=== PATIENT | male | born 1970 | race Caucasian/White ===

== ENCOUNTER 2020-02-17 14:24 | Inpatient (IN) | payer OTHER, MEDICAID ==
[~2020-02-17] VITALS: Ht 172.7 cm; Wt 86.2 kg
[2020-02-17] MEDS ORDERED: PROPOFOL 100 ML IV ONE ×2 (18:52→21:07)
[2020-02-17] MEDS ORDERED: NOREPINEPHRINE 8 MG in SODIUM CHLORIDE 0.9% 242 ML IV PRN (19:12)
[2020-02-17] MEDS ORDERED: SENNA 176 MG/5 ML ORAL SOL NG PRN (19:30)
[2020-02-17] MEDS ORDERED: GLUCAGON 1 MG IM PRN (19:30)
[2020-02-17] MEDS: PLEASE ENTER HEIGHT AND WEIGHT MC SCH (19:30)
[2020-02-17] MEDS ORDERED: DEXTROSE 4 GM TAB.CHEW PO PRN (19:30)
[2020-02-17] MEDS ORDERED: SENNA/DOCUSATE TABLET NG PRN (19:30)
[2020-02-17] MEDS ORDERED: PHARMACY MAY ADJ FOR RENAL FX MC SCH (19:30)
[2020-02-17] MEDS ORDERED: BISACODYL 10 MG SUPP PR PRN (19:30)
[2020-02-17] MEDS ORDERED: LACTULOSE 20 GM/30 ML UDC NG PRN (19:30)
[2020-02-17] MEDS ORDERED: LIDOCAINE-MPF 1%, 2ML ENDO PRN (19:30)
[2020-02-17] MEDS ORDERED: DEXTROSE 50%, 50ML SYRINGE IVPush PRN (19:30)
[2020-02-17] MEDS ORDERED: PLEASE ENTER ALLERGIES MC SCH (19:30)
[2020-02-17] MEDS ORDERED: ACETAMINOPHEN 325 MG TABLET ONE (19:57)
[2020-02-17] MEDS: ACETAMINOPHEN 650 MG/20.3 ML UDC PO/NG PRN (20:01)
[2020-02-17] MEDS: AZITHROMYCIN 500 MG in SODIUM CHLORIDE 0.9% 250 ML IV SCH (20:28)
[2020-02-17] MEDS: HYDROXYCHLOROQUINE 200 MG TABLET PO SCH (20:28)
[2020-02-17] MEDS: SODIUM CHLORIDE FLUSH 10ML SYR IVF SCH ×2 (20:29→22:28)
[2020-02-17] MEDS: PROPOFOL 100 ML IV SCH ×2 (21:08→22:29)
[2020-02-17] MEDS ORDERED: SODIUM CHLORIDE 0.9% 1,000 ML IV SCH (22:00)
[2020-02-17 22:46] VITALS: BP 129/81
[2020-02-18] MEDS: ACETAMINOPHEN 650 MG/20.3 ML UDC PO/NG PRN ×3 (00:05→21:00)
[2020-02-18] MEDS: PLEASE ENTER HEIGHT AND WEIGHT MC SCH ×2 (00:30→11:30)
[2020-02-18 01:32] LABS: CULTURE INDICATED? YES; MICROSCOPIC INDICATED
[2020-02-18] MEDS: PROPOFOL 100 ML IV SCH ×6 (03:11→23:40)
[2020-02-18 04:00] VITALS: BP 106/71
[2020-02-18 07:03] LABS: ALANINE AMINOTRANSFERASE 67 U/L (12-78); ALBUMIN 2.1 g/dL (3.4-5.0); ANION GAP 5 mmol/L (5-15); CALCIUM 7.8 mg/dL (8.5-10.1); CHLORIDE 104 mmol/L (98-107)
[2020-02-18 07:05] LABS: ALKALINE PHOSPHATASE 179 U/L (45-117); BILIRUBIN,TOTAL 0.5 mg/dL (0.2-1.0); TOTAL PROTEIN 6.3 g/dL (6.4-8.2)
[2020-02-18 07:07] LABS: BASOPHILS # (AUTO) 0.01 x10^3/uL (0-0.1); BASOPHILS % (AUTO) 0 % (0-1); EOSINOPHILS # (AUTO) 0.01 x10^3/uL (0-0.4); EOSINOPHILS % (AUTO) 0 % (1-7); LYMPHOCYTES # (AUTO) 0.55 x10^3/uL (1-3.4); LYMPHOCYTES % (AUTO) 13 % (22-44); MD NO; MEAN CORPUSCULAR HEMOGLOBIN 29.1 pg (27.5-34.5); MEAN CORPUSCULAR HGB CONC 33.9 g/dL (33.2-36.2); MEAN CORPUSCULAR VOLUME 85.8 fL (81-97); MEAN PLATELET VOLUME 7.9 fL (7.4-10.4); MONOCYTES # (AUTO) 0.08 x10^3/uL (0.2-0.8); MONOCYTES % (AUTO) 2 % (2-9); NEUTROPHILS # (AUTO) 3.45 x10^3/uL (1.8-6.8); NEUTROPHILS % (AUTO) 84 % (42-75); PLATELET COUNT 133 x10^3/uL (130-400); RED BLOOD COUNT 4.84 x10^6/uL (4.38-5.82)
[2020-02-18] MEDS: SODIUM CHLORIDE FLUSH 10ML SYR IVF SCH (07:57)
[2020-02-18] MEDS ORDERED: PANTOPRAZOLE 40 MG IV IV SCH (09:00)
[2020-02-18] MEDS: HYDROXYCHLOROQUINE 200 MG TABLET PO SCH ×3 (09:59→21:05)
--- NOTE | 2020-02-18 11:05 | NUR ---
TF GOAL: w/ propofol: VITAL HIGH PROTEIN @ 65ML/HR off propofol: VITAL HIGH PROTEIN @ 70ML/HR
[2020-02-18] MEDS ORDERED: ALBUTEROL/IPRATROPIUM 2.5MG/0.5MG, 3 ML ONE (11:46)
[2020-02-18] MEDS: FENTANYL PF 100 MCG/2ML IVPush PRN (11:58)
[2020-02-18] MEDS: ALBUTEROL/IPRATROPIUM 2.5MG/0.5MG, 3 ML INLINE SCH ×2 (15:00→21:00)
[2020-02-18] MEDS ORDERED: ALBUTEROL/IPRATROPIUM 2.5MG/0.5MG, 3 ML IPPB SCH (15:00)
[2020-02-18] MEDS: MIDAZOLAM 1 MG/ML, 2ML IVPush PRN ×3 (16:40→21:00)
[2020-02-18] MEDS: AZITHROMYCIN 500 MG in SODIUM CHLORIDE 0.9% 250 ML IV SCH (21:00)
[2020-02-19] MEDS: ALBUTEROL/IPRATROPIUM 2.5MG/0.5MG, 3 ML INLINE SCH ×4 (02:28→20:48)
[2020-02-19] MEDS: FENTANYL PF 100 MCG/2ML IVPush PRN ×6 (03:07→21:18)
[2020-02-19] MEDS: PROPOFOL 100 ML IV SCH ×5 (03:31→21:17)
[2020-02-19 03:49] VITALS: BP 102/60
[2020-02-19 05:16] LABS: BASOPHILS # (AUTO) 0.02 x10^3/uL (0-0.1); BASOPHILS % (AUTO) 0 % (0-1); EOSINOPHILS # (AUTO) 0.01 x10^3/uL (0-0.4); EOSINOPHILS % (AUTO) 0 % (1-7); LYMPHOCYTES # (AUTO) 0.42 x10^3/uL (1-3.4); LYMPHOCYTES % (AUTO) 8 % (22-44); MD NO; MEAN CORPUSCULAR HEMOGLOBIN 29.3 pg (27.5-34.5); MEAN CORPUSCULAR HGB CONC 34.4 g/dL (33.2-36.2); MEAN CORPUSCULAR VOLUME 85.2 fL (81-97); MEAN PLATELET VOLUME 7.8 fL (7.4-10.4); MONOCYTES # (AUTO) 0.08 x10^3/uL (0.2-0.8); MONOCYTES % (AUTO) 2 % (2-9); NEUTROPHILS # (AUTO) 4.73 x10^3/uL (1.8-6.8); NEUTROPHILS % (AUTO) 90 % (42-75); PLATELET COUNT 167 x10^3/uL (130-400); RED BLOOD COUNT 4.64 x10^6/uL (4.38-5.82); RED CELL DISTRIBUTION WIDTH 12.8 % (9.4-14.8)
[2020-02-19 05:21] LABS: ANION GAP 8 mmol/L (5-15); CALCIUM 7.8 mg/dL (8.5-10.1); CHLORIDE 102 mmol/L (98-107)
[2020-02-19 05:25] LABS: ALANINE AMINOTRANSFERASE 56 U/L (12-78); ALKALINE PHOSPHATASE 198 U/L (45-117); BILIRUBIN, DIRECT 0.2 mg/dL (0.1-0.2); BILIRUBIN,INDIRECT 0.4 mg/dL (0.0-2.0); BILIRUBIN,TOTAL 0.6 mg/dL (0.2-1.0); TOTAL PROTEIN 6.2 g/dL (6.4-8.2)
[2020-02-19] MEDS ORDERED: PANTOPRAZOLE 40MG TABLET PO SCH (06:00)
[2020-02-19] MEDS: SODIUM CHLORIDE FLUSH 10ML SYR IVF SCH ×2 (08:30→20:27)
[2020-02-19 08:56] LABS: C-REACTIVE PROTEIN, QUANT > 19.00 mg/dL (0.02-0.49)
[2020-02-19] MEDS: HYDROXYCHLOROQUINE 200 MG TABLET PO SCH ×3 (09:31→20:22)
[2020-02-19] MEDS ORDERED: SODIUM CHLORIDE 0.9% 1,000 ML IV SCH (10:00)
[2020-02-19] MEDS: THIAMINE 100MG TABLET PO SCH ×2 (11:33→20:22)
[2020-02-19] MEDS: ZIPRASIDONE 20MG CAPSULE PO SCH ×2 (11:36→20:22)
[2020-02-19] MEDS: FONDAPARINUX 2.5 MG/0.5 ML SQ SCH (13:48)
[2020-02-19] MEDS: CEFTRIAXONE PMX 1GM/50ML 50 ML IV SCH (13:48)
[2020-02-19] MEDS: ACETAMINOPHEN 650 MG/20.3 ML UDC PO/NG PRN ×2 (16:05→21:18)
[2020-02-19] MEDS: AZITHROMYCIN 500 MG in SODIUM CHLORIDE 0.9% 250 ML IV SCH (20:21)
[2020-02-20] MEDS: CEFTRIAXONE PMX 1GM/50ML 50 ML IV SCH ×2 (00:36→12:38)
[2020-02-20] MEDS: PROPOFOL 100 ML IV SCH ×7 (01:30→21:41)
[2020-02-20] MEDS: ALBUTEROL/IPRATROPIUM 2.5MG/0.5MG, 3 ML INLINE SCH ×6 (03:16→22:49)
[2020-02-20] MEDS: FENTANYL PF 100 MCG/2ML IVPush PRN ×5 (03:23→17:16)
[2020-02-20 04:00] VITALS: BP 151/88
[2020-02-20 04:57] LABS: BASOPHILS % (AUTO) 0 % (0-1); EOSINOPHILS # (AUTO) 0.01 x10^3/uL (0-0.4); EOSINOPHILS % (AUTO) 0 % (1-7); LYMPHOCYTES # (AUTO) 0.48 x10^3/uL (1-3.4); LYMPHOCYTES % (AUTO) 8 % (22-44); MD NO; MEAN CORPUSCULAR HEMOGLOBIN 29.1 pg (27.5-34.5); MEAN CORPUSCULAR HGB CONC 33.7 g/dL (33.2-36.2); MEAN CORPUSCULAR VOLUME 86.4 fL (81-97); MEAN PLATELET VOLUME 7.5 fL (7.4-10.4); MONOCYTES % (AUTO) 2 % (2-9); NEUTROPHILS # (AUTO) 5.83 x10^3/uL (1.8-6.8); NEUTROPHILS % (AUTO) 91 % (42-75); PLATELET COUNT 203 x10^3/uL (130-400); RED BLOOD COUNT 4.61 x10^6/uL (4.38-5.82)
[2020-02-20 05:07] LABS: ANION GAP 6 mmol/L (5-15); CALCIUM 7.7 mg/dL (8.5-10.1); CHLORIDE 104 mmol/L (98-107)
[2020-02-20 05:08] LABS: CREATININE 0.98 mg/dL (0.7-1.3); TRIGLYCERIDES 192 mg/dL (50-200)
[2020-02-20] MEDS: MIDAZOLAM 1 MG/ML, 2ML IVPush PRN (05:16)
[2020-02-20] MEDS: ACETAMINOPHEN 650 MG/20.3 ML UDC PO/NG PRN ×4 (05:16→17:18)
[2020-02-20 06:00] LABS: C-REACTIVE PROTEIN, QUANT > 19.00 mg/dL (0.02-0.49)
[2020-02-20] MEDS: PANTOPRAZOLE 40 MG IV IVPush SCH (06:12)
[2020-02-20] MEDS: SODIUM CHLORIDE FLUSH 10ML SYR IVF SCH ×2 (07:49→21:00)
[2020-02-20] MEDS: FONDAPARINUX 2.5 MG/0.5 ML SQ SCH (07:54)
[2020-02-20] MEDS: ZIPRASIDONE 20MG CAPSULE PO SCH ×2 (07:54→21:13)
[2020-02-20] MEDS: THIAMINE 100MG TABLET PO SCH ×2 (07:55→21:13)
[2020-02-20] MEDS: HYDROXYCHLOROQUINE 200 MG TABLET PO SCH ×3 (07:55→21:14)
[2020-02-20] MEDS: FENTANYL PF 1,000 MCG in SODIUM CHLORIDE 0.9% 80 ML IV PRN ×2 (15:56→22:34)
[2020-02-20] MEDS: VECURONIUM 50 MG in SODIUM CHLORIDE 0.9% 50 ML IV PRN ×2 (15:57→22:33)
[2020-02-20] MEDS ORDERED: ARTIFICIAL TEARS OINT 3.5 GM EACHEYE SCH (18:00)
[2020-02-20] MEDS: AZITHROMYCIN 500 MG in SODIUM CHLORIDE 0.9% 250 ML IV SCH (21:13)
[2020-02-21] MEDS: CEFTRIAXONE PMX 1GM/50ML 50 ML IV SCH ×3 (00:31→23:43)
[2020-02-21] MEDS: ACETAMINOPHEN 650 MG/20.3 ML UDC PO/NG PRN ×3 (00:31→21:18)
[2020-02-21] MEDS: ALBUTEROL/IPRATROPIUM 2.5MG/0.5MG, 3 ML INLINE SCH ×6 (03:34→22:27)
[2020-02-21] MEDS: PROPOFOL 100 ML IV SCH ×3 (03:50→17:34)
[2020-02-21 04:56] LABS: BASOPHILS % (AUTO) 0 % (0-1); EOSINOPHILS # (AUTO) 0.03 x10^3/uL (0-0.4); EOSINOPHILS % (AUTO) 0 % (1-7); LYMPHOCYTES # (AUTO) 0.22 x10^3/uL (1-3.4); LYMPHOCYTES % (AUTO) 3 % (22-44); MD NO; MEAN CORPUSCULAR HEMOGLOBIN 28.9 pg (27.5-34.5); MEAN CORPUSCULAR HGB CONC 33.1 g/dL (33.2-36.2); MEAN CORPUSCULAR VOLUME 87.5 fL (81-97); MEAN PLATELET VOLUME 7.3 fL (7.4-10.4); MONOCYTES # (AUTO) 0.19 x10^3/uL (0.2-0.8); MONOCYTES % (AUTO) 3 % (2-9); NEUTROPHILS # (AUTO) 6.19 x10^3/uL (1.8-6.8); NEUTROPHILS % (AUTO) 93 % (42-75); PLATELET COUNT 214 x10^3/uL (130-400); RED BLOOD COUNT 4.51 x10^6/uL (4.38-5.82); RED CELL DISTRIBUTION WIDTH 13.7 % (9.4-14.8)
[2020-02-21 05:08] LABS: ANION GAP 3 mmol/L (5-15); CHLORIDE 106 mmol/L (98-107); CREATININE 1.18 mg/dL (0.7-1.3)
[2020-02-21 05:14] LABS: PREALBUMIN 4.7 mg/dL (20.0-40.0)
[2020-02-21] MEDS: PANTOPRAZOLE 40 MG IV IVPush SCH (05:54)
[2020-02-21] MEDS: ARTIFICIAL TEARS OINT 3.5 GM EACHEYE SCH ×5 (05:55→23:45)
[2020-02-21] MEDS: THIAMINE 100MG TABLET PO SCH ×2 (07:49→21:18)
[2020-02-21] MEDS: ZIPRASIDONE 20MG CAPSULE PO SCH ×2 (07:49→21:17)
[2020-02-21] MEDS: FONDAPARINUX 2.5 MG/0.5 ML SQ SCH (08:19)
[2020-02-21] MEDS: SODIUM CHLORIDE FLUSH 10ML SYR IVF SCH ×2 (08:19→21:00)
[2020-02-21] MEDS: HYDROXYCHLOROQUINE 200 MG TABLET PO SCH ×3 (08:19→21:18)
[2020-02-21] MEDS ORDERED: TOCILIZUMAB 400 MG in SODIUM CHLORIDE 0.9% 80 ML IVPB ONE (09:00)
[2020-02-21 09:32] LABS: C-REACTIVE PROTEIN, QUANT > 19.00 mg/dL (0.02-0.49)
[2020-02-21] MEDS: FENTANYL PF 1,000 MCG in SODIUM CHLORIDE 0.9% 80 ML IV PRN ×2 (09:51→23:42)
[2020-02-21] MEDS: VECURONIUM 50 MG in SODIUM CHLORIDE 0.9% 50 ML IV PRN (09:51)
[2020-02-21] MEDS: AZITHROMYCIN 500 MG in SODIUM CHLORIDE 0.9% 250 ML IV SCH (21:16)
[2020-02-22] MEDS: ALBUTEROL/IPRATROPIUM 2.5MG/0.5MG, 3 ML INLINE SCH ×6 (02:12→22:22)
[2020-02-22 05:54] LABS: C-REACTIVE PROTEIN, QUANT > 19.00 mg/dL (0.02-0.49)
[2020-02-22 05:56] LABS: BASOPHILS % (AUTO) 0 % (0-1); EOSINOPHILS # (AUTO) 0.16 x10^3/uL (0-0.4); EOSINOPHILS % (AUTO) 4 % (1-7); LYMPHOCYTES # (AUTO) 0.31 x10^3/uL (1-3.4); LYMPHOCYTES % (AUTO) 7 % (22-44); MD NO; MEAN CORPUSCULAR HEMOGLOBIN 29.4 pg (27.5-34.5); MEAN CORPUSCULAR HGB CONC 33.6 g/dL (33.2-36.2); MEAN CORPUSCULAR VOLUME 87.5 fL (81-97); MEAN PLATELET VOLUME 7.4 fL (7.4-10.4); MONOCYTES # (AUTO) 0.15 x10^3/uL (0.2-0.8); MONOCYTES % (AUTO) 3 % (2-9); NEUTROPHILS # (AUTO) 3.96 x10^3/uL (1.8-6.8); NEUTROPHILS % (AUTO) 86 % (42-75); PLATELET COUNT 255 x10^3/uL (130-400); RED CELL DISTRIBUTION WIDTH 13.4 % (9.4-14.8)
[2020-02-22 06:08] LABS: ANION GAP 6 mmol/L (5-15); CALCIUM 8.2 mg/dL (8.5-10.1); CHLORIDE 108 mmol/L (98-107); CREATININE 1.23 mg/dL (0.7-1.3)
[2020-02-22] MEDS: PANTOPRAZOLE 40 MG IV IVPush SCH (06:12)
[2020-02-22] MEDS: ARTIFICIAL TEARS OINT 3.5 GM EACHEYE SCH (06:12)
[2020-02-22] MEDS: PROPOFOL 100 ML IV SCH ×2 (06:13→16:01)
[2020-02-22] MEDS ORDERED: SODIUM CHLORIDE 0.9%, 500ML IVBOLUS ONE (07:00)
[2020-02-22] MEDS: HYDROXYCHLOROQUINE 200 MG TABLET PO SCH ×3 (07:41→22:17)
[2020-02-22] MEDS: THIAMINE 100MG TABLET PO SCH ×2 (07:41→22:17)
[2020-02-22] MEDS: ZIPRASIDONE 20MG CAPSULE PO SCH ×2 (07:41→22:17)
[2020-02-22] MEDS: FONDAPARINUX 2.5 MG/0.5 ML SQ SCH (07:42)
[2020-02-22] MEDS: SODIUM CHLORIDE FLUSH 10ML SYR IVF SCH ×2 (07:42→22:18)
[2020-02-22] MEDS: ZINC SULFATE 220 MG CAPSULE NG SCH (10:44)
--- NOTE | 2020-02-22 11:11 | NUR ---
02/21-TF goal: NEPRO @ 45ML/HR plus 4pkts beneprotein per day
[2020-02-22] MEDS ORDERED: CEFAZOLIN 1,000 MG IM SCH (13:30)
[2020-02-22] MEDS: CEFAZOLIN 2,000 MG in SODIUM CHLORIDE 0.9% 50 ML IV SCH (14:22)
[2020-02-22] MEDS: ACETAMINOPHEN 650 MG/20.3 ML UDC PO/NG PRN ×2 (16:01→22:33)
[2020-02-22] MEDS: AZITHROMYCIN 500 MG in SODIUM CHLORIDE 0.9% 250 ML IV SCH (22:17)
[2020-02-23] MEDS: CEFAZOLIN 2,000 MG in SODIUM CHLORIDE 0.9% 50 ML IV SCH ×4 (00:23→23:52)
[2020-02-23] MEDS: PROPOFOL 100 ML IV SCH ×2 (00:23→03:38)
[2020-02-23] MEDS: ALBUTEROL/IPRATROPIUM 2.5MG/0.5MG, 3 ML INLINE SCH ×6 (02:30→22:33)
[2020-02-23 05:32] LABS: BASOPHILS # (AUTO) 0.01 x10^3/uL (0-0.1); BASOPHILS % (AUTO) 0 % (0-1); EOSINOPHILS # (AUTO) 0.25 x10^3/uL (0-0.4); EOSINOPHILS % (AUTO) 5 % (1-7); LYMPHOCYTES # (AUTO) 0.45 x10^3/uL (1-3.4); LYMPHOCYTES % (AUTO) 9 % (22-44); MD NO; MEAN CORPUSCULAR HGB CONC 33.5 g/dL (33.2-36.2); MEAN CORPUSCULAR VOLUME 86.6 fL (81-97); MEAN PLATELET VOLUME 6.8 fL (7.4-10.4); MONOCYTES # (AUTO) 0.22 x10^3/uL (0.2-0.8); MONOCYTES % (AUTO) 5 % (2-9); NEUTROPHILS # (AUTO) 3.97 x10^3/uL (1.8-6.8); NEUTROPHILS % (AUTO) 81 % (42-75); PLATELET COUNT 278 x10^3/uL (130-400); RED BLOOD COUNT 4.21 x10^6/uL (4.38-5.82); RED CELL DISTRIBUTION WIDTH 13.3 % (9.4-14.8)
[2020-02-23 05:35] LABS: ANION GAP 5 mmol/L (5-15); CALCIUM 8.4 mg/dL (8.5-10.1); CHLORIDE 112 mmol/L (98-107); CREATININE 1.17 mg/dL (0.7-1.3); TRIGLYCERIDES 395 mg/dL (50-200)
[2020-02-23] MEDS: PANTOPRAZOLE 40 MG IV IVPush SCH (06:04)
[2020-02-23] MEDS: FENTANYL PF 1,000 MCG in SODIUM CHLORIDE 0.9% 80 ML IV PRN ×2 (06:53→21:31)
[2020-02-23 07:14] LABS: C-REACTIVE PROTEIN, QUANT 9.4 mg/dL (0.02-0.49)
[2020-02-23] MEDS ORDERED: VECURONIUM 10 MG ONE (08:38)
[2020-02-23] MEDS: ZINC SULFATE 220 MG CAPSULE NG SCH (08:54)
[2020-02-23] MEDS: HYDROXYCHLOROQUINE 200 MG TABLET PO SCH ×3 (08:54→19:40)
[2020-02-23] MEDS: THIAMINE 100MG TABLET PO SCH ×2 (08:54→19:40)
[2020-02-23] MEDS: ENOXAPARIN 40 MG/0.4 ML SQ SCH (08:54)
[2020-02-23] MEDS: ZIPRASIDONE 20MG CAPSULE PO SCH ×2 (08:54→19:41)
[2020-02-23] MEDS: SODIUM CHLORIDE FLUSH 10ML SYR IVF SCH ×2 (08:55→19:40)
[2020-02-23] MEDS ORDERED: VECURONIUM 10 MG IVPush ONE (09:00)
[2020-02-23] MEDS ORDERED: FUROSEMIDE 40 MG/4 ML ONE (09:57)
[2020-02-23] MEDS ORDERED: FUROSEMIDE 40 MG/4 ML IV ONE (11:30)
[2020-02-23] MEDS: FUROSEMIDE 40 MG/4 ML IV SCH (16:11)
[2020-02-23] MEDS: POTASSIUM CHLORIDE 20 MEQ TAB.ER.PRT PO SCH (16:11)
[2020-02-23] MEDS: AZITHROMYCIN 500 MG in SODIUM CHLORIDE 0.9% 250 ML IV SCH (19:40)
[2020-02-23] MEDS: ACETAMINOPHEN 650 MG/20.3 ML UDC PO/NG PRN (21:37)
[2020-02-24] MEDS ORDERED: VECURONIUM 10 MG ONE (00:55)
[2020-02-24] MEDS ORDERED: VECURONIUM 10 MG IVPush ONE (01:00)
[2020-02-24] MEDS: ALBUTEROL/IPRATROPIUM 2.5MG/0.5MG, 3 ML INLINE SCH ×6 (02:30→23:00)
[2020-02-24] MEDS: FENTANYL PF 1,000 MCG in SODIUM CHLORIDE 0.9% 80 ML IV PRN ×3 (03:52→20:02)
[2020-02-24 05:06] LABS: ANION GAP 5 mmol/L (5-15); CALCIUM 8.2 mg/dL (8.5-10.1); CHLORIDE 114 mmol/L (98-107); CREATININE 1.32 mg/dL (0.7-1.3)
[2020-02-24] MEDS: PANTOPRAZOLE 40 MG IV IVPush SCH (05:06)
[2020-02-24 05:20] LABS: C-REACTIVE PROTEIN, QUANT 4.6 mg/dL (0.02-0.49)
[2020-02-24 05:52] LABS: MEAN CORPUSCULAR HEMOGLOBIN 29.5 pg (27.5-34.5); MEAN CORPUSCULAR HGB CONC 33.3 g/dL (33.2-36.2); MEAN CORPUSCULAR VOLUME 88.5 fL (81-97); MEAN PLATELET VOLUME 6.4 fL (7.4-10.4); PLATELET COUNT 241 x10^3/uL (130-400); RED CELL DISTRIBUTION WIDTH 13.5 % (9.4-14.8)
[2020-02-24 06:14] LABS: BASOPHILS # (AUTO) 0.04 x10^3/uL (0-0.1); BASOPHILS % (AUTO) 1 % (0-1); EOSINOPHILS % (AUTO) 3 % (1-7); LYMPHOCYTES # (AUTO) 0.57 x10^3/uL (1-3.4); LYMPHOCYTES % (AUTO) 10 % (22-44); MD SCAN; MONOCYTES # (AUTO) 0.27 x10^3/uL (0.2-0.8); MONOCYTES % (AUTO) 5 % (2-9); NEUTROPHILS # (AUTO) 4.82 x10^3/uL (1.8-6.8); NEUTROPHILS % (AUTO) 82 % (42-75)
[2020-02-24 06:30] VITALS: BP 112/62
[2020-02-24] MEDS: FUROSEMIDE 40 MG/4 ML IV SCH ×2 (07:30→16:32)
[2020-02-24] MEDS ORDERED: FUROSEMIDE 40 MG/4 ML IV ONE (08:00)
[2020-02-24] MEDS: CEFAZOLIN 2,000 MG in SODIUM CHLORIDE 0.9% 50 ML IV SCH ×2 (08:46→16:31)
[2020-02-24] MEDS: HYDROXYCHLOROQUINE 200 MG TABLET PO SCH ×3 (08:46→21:00)
[2020-02-24] MEDS: SODIUM CHLORIDE FLUSH 10ML SYR IVF SCH ×2 (08:46→21:55)
[2020-02-24] MEDS: ZINC SULFATE 220 MG CAPSULE NG SCH (08:46)
[2020-02-24] MEDS: ENOXAPARIN 40 MG/0.4 ML SQ SCH (08:47)
[2020-02-24] MEDS: ZIPRASIDONE 20MG CAPSULE PO SCH ×2 (08:47→21:00)
[2020-02-24] MEDS: POTASSIUM CHLORIDE 20 MEQ TAB.ER.PRT PO SCH ×2 (08:47→16:31)
[2020-02-24] MEDS: THIAMINE 100MG TABLET PO SCH ×2 (08:47→21:00)
[2020-02-24] MEDS: ACETAMINOPHEN 650 MG/20.3 ML UDC PO/NG PRN ×2 (12:01→16:31)
[2020-02-24] MEDS: ASCORBATE SODIUM 3,000 MG in SODIUM CHLORIDE 0.9% 250 ML IV SCH ×2 (12:01→18:07)
[2020-02-24] MEDS: MIDAZOLAM HCL 50 MG in SODIUM CHLORIDE 0.9% 40 ML IV PRN ×3 (12:02→22:24)
[2020-02-24] MEDS: AZITHROMYCIN 500 MG in SODIUM CHLORIDE 0.9% 250 ML IV SCH (20:03)
[2020-02-25] MEDS: ASCORBATE SODIUM 3,000 MG in SODIUM CHLORIDE 0.9% 250 ML IV SCH ×4 (01:36→20:01)
[2020-02-25] MEDS: VECURONIUM 10 MG IVPush PRN (02:19)
[2020-02-25] MEDS: CEFAZOLIN 2,000 MG in SODIUM CHLORIDE 0.9% 50 ML IV SCH ×3 (02:20→16:45)
[2020-02-25] MEDS: ALBUTEROL/IPRATROPIUM 2.5MG/0.5MG, 3 ML INLINE SCH ×6 (02:26→22:41)
[2020-02-25] MEDS: MIDAZOLAM HCL 100 MG in SODIUM CHLORIDE 0.9% 80 ML IV PRN (03:08)
[2020-02-25] MEDS: FENTANYL PF 1,000 MCG in SODIUM CHLORIDE 0.9% 80 ML IV PRN (03:08)
[2020-02-25 05:05] LABS: ANION GAP 3 mmol/L (5-15); CALCIUM 8.7 mg/dL (8.5-10.1); CHLORIDE 116 mmol/L (98-107); CREATININE 1.06 mg/dL (0.7-1.3)
[2020-02-25 05:13] LABS: BASOPHILS # (AUTO) 0.01 x10^3/uL (0-0.1); BASOPHILS % (AUTO) 0 % (0-1); EOSINOPHILS # (AUTO) 0.13 x10^3/uL (0-0.4); EOSINOPHILS % (AUTO) 1 % (1-7); LYMPHOCYTES # (AUTO) 0.65 x10^3/uL (1-3.4); LYMPHOCYTES % (AUTO) 6 % (22-44); MD NO; MEAN CORPUSCULAR HGB CONC 32.6 g/dL (33.2-36.2); MEAN CORPUSCULAR VOLUME 89.1 fL (81-97); MEAN PLATELET VOLUME 6.6 fL (7.4-10.4); MONOCYTES # (AUTO) 0.33 x10^3/uL (0.2-0.8); MONOCYTES % (AUTO) 3 % (2-9); NEUTROPHILS # (AUTO) 9.58 x10^3/uL (1.8-6.8); NEUTROPHILS % (AUTO) 90 % (42-75); PLATELET COUNT 224 x10^3/uL (130-400); RED BLOOD COUNT 4.59 x10^6/uL (4.38-5.82); RED CELL DISTRIBUTION WIDTH 13.8 % (9.4-14.8)
[2020-02-25 06:26] LABS: C-REACTIVE PROTEIN, QUANT 2.9 mg/dL (0.02-0.49)
[2020-02-25] MEDS: PANTOPRAZOLE 40 MG IV IVPush SCH (06:26)
[2020-02-25] MEDS: ACETAMINOPHEN 650 MG/20.3 ML UDC PO/NG PRN ×2 (06:26→22:04)
[2020-02-25] MEDS: POTASSIUM CHLORIDE 20 MEQ TAB.ER.PRT PO SCH ×2 (08:00→17:27)
[2020-02-25] MEDS: FUROSEMIDE 40 MG/4 ML IV SCH ×2 (08:43→17:27)
[2020-02-25] MEDS: VECURONIUM 50 MG in SODIUM CHLORIDE 0.9% 50 ML IV PRN ×2 (08:55→20:15)
[2020-02-25] MEDS: SODIUM CHLORIDE FLUSH 10ML SYR IVF SCH ×2 (08:57→20:07)
[2020-02-25] MEDS: THIAMINE 100MG TABLET PO SCH ×2 (11:03→20:08)
[2020-02-25] MEDS: ZIPRASIDONE 20MG CAPSULE PO SCH ×2 (11:04→20:08)
[2020-02-25] MEDS: ZINC SULFATE 220 MG CAPSULE NG SCH (11:04)
[2020-02-25] MEDS: ENOXAPARIN 40 MG/0.4 ML SQ SCH (11:04)
[2020-02-25] MEDS: HYDROXYCHLOROQUINE 200 MG TABLET PO SCH ×3 (11:05→20:07)
[2020-02-25] MEDS: morphine SULFATE 100 MG in DEXTROSE 5% 90 ML IV PRN (11:08)
[2020-02-25] MEDS: AZITHROMYCIN 500 MG in SODIUM CHLORIDE 0.9% 250 ML IV SCH (22:02)
[2020-02-26] MEDS: CEFAZOLIN 2,000 MG in SODIUM CHLORIDE 0.9% 50 ML IV SCH ×3 (00:20→16:13)
[2020-02-26] MEDS: VECURONIUM 50 MG in SODIUM CHLORIDE 0.9% 50 ML IV PRN (00:55)
[2020-02-26] MEDS: ASCORBATE SODIUM 3,000 MG in SODIUM CHLORIDE 0.9% 250 ML IV SCH ×4 (00:55→20:28)
[2020-02-26] MEDS: ALBUTEROL/IPRATROPIUM 2.5MG/0.5MG, 3 ML INLINE SCH ×6 (02:34→22:46)
[2020-02-26 04:50] LABS: ANION GAP 2 mmol/L (5-15); CALCIUM 8.9 mg/dL (8.5-10.1); CHLORIDE 115 mmol/L (98-107)
[2020-02-26 04:53] LABS: CREATININE 1.04 mg/dL (0.7-1.3); TRIGLYCERIDES 400 mg/dL (50-200)
[2020-02-26 04:56] LABS: BASOPHILS # (AUTO) 0.02 x10^3/uL (0-0.1); BASOPHILS % (AUTO) 0 % (0-1); EOSINOPHILS # (AUTO) 0.01 x10^3/uL (0-0.4); EOSINOPHILS % (AUTO) 0 % (1-7); LYMPHOCYTES % (AUTO) 6 % (22-44); MD NO; MEAN CORPUSCULAR HEMOGLOBIN 29.1 pg (27.5-34.5); MEAN CORPUSCULAR HGB CONC 32.6 g/dL (33.2-36.2); MEAN CORPUSCULAR VOLUME 89.2 fL (81-97); MEAN PLATELET VOLUME 6.9 fL (7.4-10.4); MONOCYTES % (AUTO) 3 % (2-9); NEUTROPHILS % (AUTO) 91 % (42-75); PLATELET COUNT 219 x10^3/uL (130-400); RED BLOOD COUNT 4.78 x10^6/uL (4.38-5.82); RED CELL DISTRIBUTION WIDTH 13.3 % (9.4-14.8)
[2020-02-26] MEDS: PANTOPRAZOLE 40 MG IV IVPush SCH (05:15)
[2020-02-26 06:14] LABS: ALANINE AMINOTRANSFERASE 65 U/L (12-78); ALBUMIN 2.1 g/dL (3.4-5.0); ANION GAP 2 mmol/L (5-15); CALCIUM 8.8 mg/dL (8.5-10.1); CHLORIDE 116 mmol/L (98-107); CREATININE 1.09 mg/dL (0.7-1.3)
[2020-02-26 06:16] LABS: ALKALINE PHOSPHATASE 195 U/L (45-117); BILIRUBIN,TOTAL 0.2 mg/dL (0.2-1.0); TOTAL PROTEIN 6.6 g/dL (6.4-8.2)
[2020-02-26] MEDS: FUROSEMIDE 40 MG/4 ML IV SCH ×2 (08:24→16:12)
[2020-02-26] MEDS: POTASSIUM CHLORIDE 20 MEQ TAB.ER.PRT PO SCH ×2 (08:25→16:12)
[2020-02-26] MEDS: ENOXAPARIN 40 MG/0.4 ML SQ SCH (09:00)
[2020-02-26] MEDS: THIAMINE 100MG TABLET PO SCH ×2 (09:00→20:28)
[2020-02-26] MEDS: ZIPRASIDONE 20MG CAPSULE PO SCH ×2 (09:00→20:28)
[2020-02-26] MEDS: HYDROXYCHLOROQUINE 200 MG TABLET PO SCH ×3 (09:00→20:28)
[2020-02-26] MEDS: SODIUM CHLORIDE FLUSH 10ML SYR IVF SCH ×2 (09:00→20:28)
[2020-02-26] MEDS: ZINC SULFATE 220 MG CAPSULE NG SCH (10:30)
[2020-02-26] MEDS: MIDAZOLAM HCL 100 MG in SODIUM CHLORIDE 0.9% 80 ML IV PRN (12:21)
[2020-02-26] MEDS ORDERED: ALBUTEROL SULFATE 2.5 MG/3 ML ONE (14:07)
[2020-02-26] MEDS: AZITHROMYCIN 500 MG in SODIUM CHLORIDE 0.9% 250 ML IV SCH (23:27)
[2020-02-27] MEDS: CEFAZOLIN 2,000 MG in SODIUM CHLORIDE 0.9% 50 ML IV SCH (00:35)
[2020-02-27] MEDS: morphine SULFATE 100 MG in DEXTROSE 5% 90 ML IV PRN (00:36)
[2020-02-27] MEDS: ASCORBATE SODIUM 3,000 MG in SODIUM CHLORIDE 0.9% 250 ML IV SCH ×4 (00:41→21:29)
[2020-02-27] MEDS: ALBUTEROL/IPRATROPIUM 2.5MG/0.5MG, 3 ML INLINE SCH ×6 (02:16→22:07)
[2020-02-27] MEDS: MIDAZOLAM HCL 100 MG in SODIUM CHLORIDE 0.9% 80 ML IV PRN (04:16)
[2020-02-27 05:10] LABS: BASOPHILS # (AUTO) 0.01 x10^3/uL (0-0.1); BASOPHILS % (AUTO) 0 % (0-1); EOSINOPHILS # (AUTO) 0.18 x10^3/uL (0-0.4); EOSINOPHILS % (AUTO) 2 % (1-7); LYMPHOCYTES # (AUTO) 0.93 x10^3/uL (1-3.4); LYMPHOCYTES % (AUTO) 9 % (22-44); MD NO; MEAN CORPUSCULAR HEMOGLOBIN 29.1 pg (27.5-34.5); MEAN CORPUSCULAR HGB CONC 32.4 g/dL (33.2-36.2); MEAN CORPUSCULAR VOLUME 89.9 fL (81-97); MEAN PLATELET VOLUME 7.4 fL (7.4-10.4); MONOCYTES # (AUTO) 0.14 x10^3/uL (0.2-0.8); MONOCYTES % (AUTO) 1 % (2-9); NEUTROPHILS # (AUTO) 9.48 x10^3/uL (1.8-6.8); NEUTROPHILS % (AUTO) 88 % (42-75); PLATELET COUNT 198 x10^3/uL (130-400); RED BLOOD COUNT 4.26 x10^6/uL (4.38-5.82); RED CELL DISTRIBUTION WIDTH 13.7 % (9.4-14.8)
[2020-02-27 05:18] LABS: ALBUMIN 2.1 g/dL (3.4-5.0); ANION GAP 3 mmol/L (5-15); CALCIUM 8.5 mg/dL (8.5-10.1); CHLORIDE 119 mmol/L (98-107)
[2020-02-27 05:28] LABS: ALANINE AMINOTRANSFERASE 35 U/L (12-78); ALKALINE PHOSPHATASE 145 U/L (45-117); BILIRUBIN,TOTAL 0.3 mg/dL (0.2-1.0); CREATININE 0.95 mg/dL (0.7-1.3)
[2020-02-27] MEDS: PANTOPRAZOLE 40 MG IV IVPush SCH (06:19)
[2020-02-27] MEDS: ZIPRASIDONE 20MG CAPSULE PO SCH ×2 (07:45→21:30)
[2020-02-27] MEDS: ENOXAPARIN 40 MG/0.4 ML SQ SCH (07:45)
[2020-02-27] MEDS: AcetaZOLAMIDE INJ 500 MG IVPush SCH ×2 (07:45→21:29)
[2020-02-27] MEDS: LACTOBACILLUS CHEW TABLET PO SCH ×3 (07:45→21:30)
[2020-02-27] MEDS: HYDROXYCHLOROQUINE 200 MG TABLET PO SCH ×3 (07:45→21:30)
[2020-02-27] MEDS: THIAMINE 100MG TABLET PO SCH ×2 (07:48→21:30)
[2020-02-27] MEDS: SODIUM CHLORIDE FLUSH 10ML SYR IVF SCH ×2 (07:48→21:29)
[2020-02-27] MEDS: CEFAZOLIN PMX 2GM/50ML 50 ML IVPB SCH ×2 (10:00→17:23)
[2020-02-27] MEDS: ZINC SULFATE 220 MG CAPSULE NG SCH (10:08)
[2020-02-27] MEDS: ACETAMINOPHEN 650 MG/20.3 ML UDC PO/NG PRN (14:12)
[2020-02-27] MEDS: AZITHROMYCIN 500 MG in SODIUM CHLORIDE 0.9% 250 ML IV SCH (21:30)
[2020-02-28] MEDS: ASCORBATE SODIUM 3,000 MG in SODIUM CHLORIDE 0.9% 250 ML IV SCH ×2 (01:48→10:00)
[2020-02-28] MEDS: CEFAZOLIN PMX 2GM/50ML 50 ML IVPB SCH ×2 (01:48→10:00)
[2020-02-28] MEDS: ALBUTEROL/IPRATROPIUM 2.5MG/0.5MG, 3 ML INLINE SCH ×2 (02:11→06:50)
[2020-02-28] MEDS: MIDAZOLAM HCL 100 MG in SODIUM CHLORIDE 0.9% 80 ML IV PRN (03:21)
[2020-02-28 04:40] LABS: MEAN CORPUSCULAR HEMOGLOBIN 29.2 pg (27.5-34.5); MEAN CORPUSCULAR HGB CONC 32.6 g/dL (33.2-36.2); MEAN CORPUSCULAR VOLUME 89.5 fL (81-97); MEAN PLATELET VOLUME 7.2 fL (7.4-10.4); PLATELET COUNT 209 x10^3/uL (130-400); RED BLOOD COUNT 4.24 x10^6/uL (4.38-5.82); RED CELL DISTRIBUTION WIDTH 14.2 % (9.4-14.8)
[2020-02-28 04:51] LABS: ALBUMIN 2.2 g/dL (3.4-5.0); ANION GAP 4 mmol/L (5-15); CALCIUM 8.2 mg/dL (8.5-10.1); CHLORIDE 124 mmol/L (98-107)
[2020-02-28 04:59] LABS: ALANINE AMINOTRANSFERASE 29 U/L (12-78); ALKALINE PHOSPHATASE 145 U/L (45-117); BILIRUBIN,TOTAL 0.4 mg/dL (0.2-1.0); CREATININE 1.03 mg/dL (0.7-1.3); PREALBUMIN 18.2 mg/dL (20.0-40.0)
[2020-02-28] MEDS: PANTOPRAZOLE 40 MG IV IVPush SCH (05:00)
[2020-02-28 05:48] LABS: BASOPHILS # (AUTO) 0.05 x10^3/uL (0-0.1); BASOPHILS % (AUTO) 0 % (0-1); EOSINOPHILS # (AUTO) 0.26 x10^3/uL (0-0.4); EOSINOPHILS % (AUTO) 2 % (1-7); LYMPHOCYTES % (AUTO) 5 % (22-44); MD SCAN; MONOCYTES # (AUTO) 0.37 x10^3/uL (0.2-0.8); MONOCYTES % (AUTO) 3 % (2-9); NEUTROPHILS # (AUTO) 11.94 x10^3/uL (1.8-6.8); NEUTROPHILS % (AUTO) 90 % (42-75)
[2020-02-28] MEDS: VECURONIUM 50 MG in SODIUM CHLORIDE 0.9% 50 ML IV PRN (06:04)
[2020-02-28] MEDS: VECURONIUM 10 MG IVPush PRN (06:04)
[2020-02-28] MEDS: morphine SULFATE 100 MG in DEXTROSE 5% 90 ML IV PRN (06:22)
[2020-02-28] MEDS ORDERED: FUROSEMIDE 40 MG/4 ML IV SCH (07:30)
[2020-02-28] MEDS ORDERED: POTASSIUM CHLORIDE 20 MEQ PACKET ONE (07:35)
[2020-02-28] MEDS: ACETAMINOPHEN 650 MG/20.3 ML UDC PO/NG PRN (07:46)
[2020-02-28] MEDS: SODIUM CHLORIDE FLUSH 10ML SYR IVF SCH (07:46)
[2020-02-28] MEDS: LACTOBACILLUS CHEW TABLET PO SCH (07:46)
[2020-02-28] MEDS: ENOXAPARIN 40 MG/0.4 ML SQ SCH (07:47)
[2020-02-28] MEDS: MIDAZOLAM 1 MG/ML, 2ML IVPush PRN (07:47)
[2020-02-28] MEDS: HYDROXYCHLOROQUINE 200 MG TABLET PO SCH (07:51)
[2020-02-28] MEDS: ZIPRASIDONE 20MG CAPSULE PO SCH (07:51)
[2020-02-28] MEDS: THIAMINE 100MG TABLET PO SCH (07:51)
[2020-02-28] MEDS ORDERED: TPN PER PHARMACY MC PRN (09:00)
[2020-02-28] MEDS ORDERED: POTASSIUM CHLORIDE 10% 40 MEQ/30 ML UDC PO SCH (09:00)
[2020-02-28] MEDS ORDERED: METHYLNALTREXONE 12 MG/0.6 ML SYR SQ SCH (09:30)
[2020-02-28] MEDS ORDERED: TOCILIZUMAB 800 MG in SODIUM CHLORIDE 0.9% 60 ML IVPB ONE (09:30)
[2020-02-28] MEDS ORDERED: AMINO ACID 10% IV SCH (10:00)
[2020-02-28] MEDS ORDERED: FILTER, DISP 1.2 MICRON FOR TPN/PVN IV PRN (10:00)
[2020-02-28] MEDS ORDERED: DEXTROSE 70% IV SCH (10:00)
[2020-02-28] MEDS: ZINC SULFATE 220 MG CAPSULE NG SCH (10:00)
[2020-02-28] MEDS ORDERED: [UNRECOGNIZED DRUG - OTHER] IV SCH (10:00)
[2020-02-28] MEDS ORDERED: SMOF TPN IV SCH (10:00)
[2020-02-28] MEDS ORDERED: FAT EMUL IV SCH (10:00)
[2020-02-28] MEDS ORDERED: DEXTROSE 10% 500 ML IV PRN (17:00)
[2020-02-28] MEDS ORDERED: DEXTROSE 50%, 50ML SYRINGE IVPush PRN (17:00)
[2020-02-28] MEDS ORDERED: INSULIN REGULAR LOW DOSE Q6H X 48HRS SQ-INSULIN SCH (21:00)
[2020-03-01] MEDS ORDERED: INSULIN REGULAR LOW DOSE QDAY SQ-INSULIN SCH (21:00)
== END 2020-02-28 10:05 | disposition expired | DRG 207 ==
LOC: ICU 18:42
PROVIDERS: ADMIT Hospitalist; ATTEND Internal Medicine
PROC: 5A1955Z Respiratory Ventilation, Greater than 96 Consecutive Hours (ICD-10-PCS; principal; 2020-02-18)
PROC: 0BH17EZ Insertion of Endotracheal Airway into Trachea, Via Natural or Artificial Opening (ICD-10-PCS; 2020-02-18)
PROC: 05HM33Z Insertion of Infusion Device into Right Internal Jugular Vein, Percutaneous Approach (ICD-10-PCS; 2020-02-28)
PROC: B543ZZA Ultrasonography of Right Jugular Veins, Guidance (ICD-10-PCS; 2020-02-28)
DX: U07.1 COVID-19 (principal); J96.01 Acute respiratory failure with hypoxia; J12.89 Other viral pneumonia; J15.211 Pneumonia due to Methicillin susceptible Staphylococcus aureus; N17.0 Acute kidney failure with tubular necrosis; Z99.11 Dependence on respirator [ventilator] status; K21.9 Gastro-esophageal reflux disease without esophagitis; F10.10 Alcohol abuse, uncomplicated; D69.6 Thrombocytopenia, unspecified; D72.819 Decreased white blood cell count, unspecified; F11.10 Opioid abuse, uncomplicated
CPT/HCPCS: 36415; 36600; 84145; J3490; 71045; 80048; 80053; 80074; 80076; 81001; 82533; 82542; 82803; 83036; 83615; 83735; 83930; 84100; 84134; 84443; 84478; 85025; 85379; 86140; 87040; 87070; 87077; 87081; 87086; 87102; 87147; 87186; 87205; 94003; 94640; G0378; J0456; J0690; J0696; J1650; J1940; J2060; J2250; J2704; J3010; J3262; C9113; J1120; J1652; J2270; J7030; J7040; J7050